=== PATIENT | female | born 1985 | race Caucasian/White ===

== ENCOUNTER 2016-12-30 15:50 | Emergency (ER) | payer OTHER ==
[2016-12-30 16:24] VITALS: BMI 32.3
[2016-12-30 16:34] VITALS: BP 135/71; PULSE 68; RESP 16; TEMP 98.2; O2SAT 99
--- NOTE | 2016-12-30 17:40 | ED PDOC ---
Arrival/HPI - General Chief Complaint: Dental Pain Time Seen by Provider: 12/30/16 16:53 Historian: Patient - History of Present Illness Narrative History of Present Illness (Text): 12/30/16 17:36 31-year-old female presents today with left lower dental pain that started last night. Patient denies fevers or chills. Patient states she's been having intermittent dental pain. Patient states she took Motrin for pain at home without improvement. Patient denies dizziness or weakness. Patient states she has a dentist that she is going to follow-up with. No other complaints Time/Duration: Other (onset last night) Quality: Aching, Throbbing Severity Level: 7 Past Medical History - Provider Review Nursing Documentation Reviewed: Yes - Travel History Have you recently traveled outside [place] w/in the past 3 mons?: No - Tetanus Immunization Tetanus Immunization: Up to Date - Psychiatric Hx Substance Use: Yes (Methadone) - Surgical History Hx Section: Yes - Anesthesia Hx Anesthesia: Yes Hx Anesthesia Reactions: No Hx Malignant Hyperthermia: No Family/Social History - Physician Review Nursing Documentation Reviewed: Yes Family/Social History: Unknown Family HX Smoking Status: Never Smoked Hx Alcohol Use: No Hx Substance Use: Yes (Methadone) Substance used: PERCOCET Allergies/Home Meds Allergies/Adverse Reactions: Allergies No Known Allergies Allergy (Verified 12/11/15 22:46) Review of Systems - Review of Systems Constitutional: absent: Fatigue, Fevers ENT: Other (toothache). absent: Sinus Congestion Respiratory: absent: SOB, Cough Cardiovascular: absent: Chest Pain, Palpitations Gastrointestinal: absent: Abdominal Pain, Nausea, Vomiting Skin: absent: Rash, Pruritis Neurological: absent: Headache Physical Exam Vital Signs Reviewed: Yes Vital Signs Temp Pulse Resp BP Pulse Ox 12/30/16 15:51 98.2 F 68 16 135/71 99 Temperature: Afebrile Blood Pressure: Normal Pulse: Regular Respiratory Rate: Normal Appearance: Positive for: Well-Appearing, Non-Toxic, Comfortable Pain Distress: None Mental Status: Positive for: Alert and Oriented X 3 - Systems Exam Head: Present: Atraumatic Conjunctiva: Present: Normal Ears: Present: Normal, NORMAL TM Mouth: Present: Moist Mucous Membranes, Normal Lips, Normal Tounge. No: Drooling, Trismus, Normal Teeth (+ left lower dental tenderness, no edema, no erythema. ) Pharnyx: Present: Normal. No: ERYTHEMA, EXUDATE, TONSILS ENLARGED, Peritonsilar Swelling, Uvular Deviation Nose (External): Present: Atraumatic Nose (Internal): Present: Normal Inspection Neck: Present: Normal Range of Motion, Trachea Midline. No: Lymphadenopathy Respiratory/Chest: Present: Clear to Auscultation, Good Air Exchange. No: Respiratory Distress, Accessory Muscle Use Cardiovascular: Present: Regular Rate and Rhythm, Normal S1, S2. No: Murmurs Neurological: Present: GCS=15 Skin: Present: Warm, Dry, Normal Color. No: Rashes Psychiatric: Present: Alert, Oriented x 3 Medical Decision Making ED Course and Treatment: 12/30/16 17:51 Patient is nontoxic well-appearing in no distress with stable vital signs No trismus or drooling, moist mucous membranes Amoxicillin Toradol Patient reassessment: Patient is feeling better after medications. I advised follow-up with the dentist within the next 2 days. I advised immediate return is symptoms worsen persist or if new concerning symptoms develop Patient verbalizes understanding of discharge instructions and need for immediate followup. Impression: Toothache Motrin every 6 hours as needed for pain Amoxicillin 1 tablet 3 times daily x 10 days Follow-up with the dentist within the next 2 days Return immediately if symptoms worsen persist or if new concerning symptoms develop - Medication Orders Current Medication Orders: Discontinued Medications Amoxicillin (Amoxil 500 Mg Cap) 500 mg PO STAT STA PRN Reason: Protocol Stop: 12/30/16 17:11 Ketorolac Tromethamine (Toradol) 60 mg IM STAT STA Stop: 12/30/16 17:11 Disposition/Present on Arrival - Present on Arrival Any Indicators Present on Arrival: No History of DVT/PE: No History of Uncontrolled Diabetes: No Urinary Catheter: No History of Decub. Ulcer: No History Surgical Site Infection Following: None - Disposition Have Diagnosis and Disposition been Completed?: Yes Diagnosis: Toothache Disposition: HOME/ ROUTINE Disposition Time: 17:52 Patient Plan: Discharge Condition: GOOD Discharge Instructions (ExitCare): Toothache (ED) Additional Instructions: Motrin every 6 hours as needed for pain Amoxicillin 1 tablet 3 times daily x 10 days Follow-up with the dentist within the next 2 days Return immediately if symptoms worsen persist or if new concerning symptoms develop Prescriptions: Amoxicillin 500 mg PO TID #30 tab Ibuprofen [Motrin] 600 mg PO Q6H PRN #20 tab PRN Reason: pain/fever reduction Referrals: Elsie Tinajero MD [Primary Care Provider] - [place] up [place] [facility] [place] [facility] [place] [facility] [place] - Follow up with primary Liborio Cunningham DMD [Non-Staff] - Follow up with primary Wan Spangler DMD [Staff Provider] - Follow up with primary Forms: [employer] ([place]ian), WORK NOTE
== END 2016-12-30 17:50 | disposition home or self-care (01) ==
LOC: ED 15:50
DX: K08.89 Other specified disorders of teeth and supporting structures (principal)
CPT/HCPCS: 96372; 99282; J1885